=== PATIENT | male | born 1985 | race Caucasian/White ===

== ENCOUNTER 2025-01-18 11:25 | Emergency (ER) | payer OTHER ==
[2025-01-18 11:39] VITALS: BMI 31.4
[2025-01-18] MEDS: predniSONE 20 MG TABLET (UD) PO ONE (12:11)
[2025-01-18] MEDS: valACYclovir HCL 500 MG TABLET (FP) PO ONE (12:11)
[2025-01-18 12:31] LABS: ABSOLUTE IMMATURE GRANULOCYTES 0.04 x10^3/uL (0.0-0.031); BASOPHILS # 0.11 x10^3/uL (0.01-0.08); EOSINOPHIL % 1.3 % (0.8-7.0); EOSINOPHILS # 0.11 x10^3/uL (0.04-0.54); HEMATOCRIT 49.8 % (40.1-51.0); HEMOGLOBIN 16.9 g/dL (13.7-17.5); MCHC 33.9 g/dl (32.3-36.5); MEAN CELL VOLUME 88.8 fl (79.0-92.2); MEAN PLT VOLUME 12.7 fl (9.4-12.4); MONOCYTE # 0.64 x10^3/uL (0.30-0.82); MONOCYTE % 7.7 % (5.3-12.2); PLATELET COUNT 158 x10^3/uL (163-337); RDW 13.1 % (12.0-15.6)
[2025-01-18 12:47] LABS: POTASSIUM 3.7 mmol/L (3.5-5.1)
[2025-01-18 12:49] LABS: CALCIUM 9.2 mg/dL (8.5-10.1)
[2025-01-18 12:50] LABS: ALBUMIN 3.9 g/dl (3.4-5.0); BLOOD UREA NITROGEN 9.2 mg/dL (7-18)
[2025-01-18 12:53] LABS: CREATININE 0.9 mg/dL (0.55-1.3)
[2025-01-18 12:54] LABS: BILIRUBIN,TOTAL 0.5 mg/dL (0.2-1); TOT PROT 7.9 g/dl (6.4-8.2)
[2025-01-18 13:08] VITALS: BP 141/92; PULSE 88; RESP 20; TEMP 98
== END 2025-01-18 14:18 | disposition home or self-care (01) ==
LOC: JER 11:25
DX: I10 Essential (primary) hypertension (principal); E11.69 Type 2 diabetes mellitus with other specified complication; G51.0 Bell's palsy
CPT/HCPCS: 36415; 70450-TC; 80053; 82962; 83036; 85025; 86618; 99284-25